=== PATIENT | male | born 1935 | race Caucasian/White ===

== ENCOUNTER 2018-08-14 16:43 | Inpatient (IN) ==
--- NOTE | 2018-08-14 19:47 | Diag Imaging Result Doc PS360 ---
EXAM: CHEST-2 VIEWS 08/14/2018 HISTORY: SOB TECHNIQUE: AP and lateral sitting chest COMMENT: There is cardiomegaly. There is a calcified granuloma in the left lower lobe. Compared to 01/15/2018 there has been no significant change considering differences in technique. IMPRESSION: Stable chest. Electronically signed by Ángel Woods 08/14/2018 7:45 PM
[2018-08-14 20:14] LABS: BASO# 0.07 X1000 (0.0-0.2); EOS# 0.28 X1000 (0.0-0.7); HEMATOCRIT 41.4 % (42.0-52.0); HEMOGLOBIN 14.1 g/dL (14.0-18.0); IMM GRAN# 0.09 X1000 (0.0-0.04); IMM GRAN% 1.3 % (0.0-0.5); LYMPH# 1.77 X1000 (1.2-3.4); LYMPH% 25.4 % (20.5-51.1); MCH 30.8 PG (27-31); MCHC 34.1 g/dL (33-37); MCV 90.4 FL (81-99); MONO# 0.96 X1000 (0.11-0.59); MONO% 13.8 % (1.7-9.3); MPV 10.2 FL (7.4-10.4); NEUT# 3.81 X1000 (1.4-6.5); NEUT% 54.5 % (42.2-75.2); PLT 180 X1000 (130-400); RBC 4.58 XMIL (4.7-6.1); RDW 12.5 % (11.5-14.5); WBC 6.98 X1000 (4.8-10.8)
[2018-08-14 20:21] LABS: INR 2.82; PROTIME 31.7 Seconds (11.0-16.0)
[2018-08-14 20:33] LABS: HEMOGLOBIN A1C 5.3 % (4.8-6.0)
[2018-08-14 20:37] LABS: ALB/GLOB RATIO 1.6; ALBUMIN 4.1 g/dL (3.5-5.0); CALCIUM 8.6 mg/dL (8.8-10.2); CREATININE 1.2 mg/dL (0.7-1.2); POTASSIUM 4.6 mmol/L (3.5-5.1); TOTAL BILIRUBIN 0.66 mg/dL (0.20-1.00); TOTAL PROTEIN 6.7 g/dL (6.3-8.3)
[2018-08-14 21:23] LABS: TSH 2.03 uIUmL (0.27-4.20)
[2018-08-14] MEDS: NS 1,000 ML IV SCH (21:47)
[2018-08-14] MEDS: SODIUM CHLORIDE 0.9% INJ SCH (21:47)
[2018-08-14] MEDS: PEPCID IV SCH (21:47)
[2018-08-15 06:40] LABS: INR 2.63
--- NOTE | 2018-08-15 07:56 | EKG Report ---
Test Performed on : 08/14/2018 6:56:20 PM Test Reason : chest pain Blood Pressure : / mmHG Vent. Rate : 069 BPM Atrial Rate : 069 BPM P-R Int : 000 ms QRS Dur : 192 ms QT Int : 474 ms P-R-T Axes : 000 -70 080 degrees QTc Int : 507 ms Ventricular-paced rhythm with occasional premature ventricular complexes. Abnormal ECG When compared with ECG of 16-JAN-2018 12:31, premature ventricular complexes. are now present Vent. rate has increased BY 8 BPM Confirmed by Pavan Shen MD ([id number]) on 08/18/2018 11:21:07 AM
--- NOTE | 2018-08-15 08:01 | HISTORY AND PHYSICAL ---
CHIEF COMPLAINT: Feeling weak, dizziness, low blood pressure, difficulty in swallowing, choking, worsening of parkinsonism. HISTORY OF PRESENT ILLNESS: He is an 80-year-old white gentleman who came to my office with the above problems. His blood pressure was 90/60. He has been on beta meron. He is progressively declining of activities of daily living, as well as instrumental activities due to underlying parkinsonism. He has trouble swallowing, and prone for falls due to low blood pressure. The patient was admitted to the hospital with IV fluids, evaluation of swallowing, also needs Neurology opinion with Dr. Hector. Apparently, he was seen by Dr. Hector a month ago. He used to see Dr. Holliday. As a result, a hospital admission was warranted. PAST MEDICAL HISTORY: PAF, BPH, gallstones, glaucoma, hyperlipidemia, hypertension, Parkinson's disease. PAST SURGICAL HISTORY: Pacemaker in 2005, bilateral cataract surgery, appendectomy, right and left shoulder replacement, right and left knee replacement. MEDICATIONS: Medications in my office are carbidopa/levodopa 25/100 t.i.d., digoxin 125 daily, Aricept 10 daily, Lasix 20 daily, latanoprost 1 drop once daily, metoprolol 50 one tablet b.i.d., Multaq 400 twice daily, pravastatin 40 mg daily, Aldactone 25 daily, vitamin D3, 1000 units daily, warfarin, and Coumadin. ALLERGIES: Clinoril, penicillin, and sulfa drugs. SOCIAL HISTORY: since 2016. Three children. Retired from [employer]. Lives in [place]. No smoking. No alcohol. FAMILY HISTORY: Father of heart attack at 69. Mom of heart conditions. Brothers had breast cancers and stomach cancers, Parkinson's disease. HEALTH MAINTENANCE: Flu vaccine in 2018, pneumococcal in 2017. Last digital exam in 02/2016. Colonoscopy, Dr. Miller. REVIEW OF SYSTEMS: HEENT: No headache. No vision problem. Dizziness, hearing problems, trouble swallowing, choking. and cough. Cardiopulmonary: No chest pain, shortness of breath, PND, orthopnea. GI: No nausea, vomiting, abdominal pain. : No history of hesitancy, frequency. No swelling of legs, and no joint pain. Neurologic: No focal symptoms or weakness. PHYSICAL EXAMINATION: VITAL SIGNS: Temperature is 98.2 degrees, pulse 76, blood pressure 120/72. Height 6 feet 3 inches, weight 207 pounds. The patient was in my office. His orthostatic blood pressures were dropping, 90/60 upon standing. HEENT: Within normal limits. NECK: Supple. No lymphadenopathy. CHEST: Bilateral air entry. HEART: Heart sounds are regular. ABDOMEN: Belly is soft, nontender. Good bowel sounds. EXTREMITIES: No peripheral edema, cyanosis. NEUROLOGIC: No obvious neurological deficits. INVESTIGATIONS: CBC: White cell count 6.9, hematocrit 41, platelets 180,000. PT 31.7, INR 2.82. Sodium 135, potassium 4.6, BUN 24, creatinine 1.2, calcium 8.6. B12 and TSH are normal. Chest x- ray stable. Pacemaker noted on the left side. Bilateral shoulder replacement. ASSESSMENT AND PLAN: An 83-year-old white gentleman, progressively declining, with underlying Parkinson's disease causing the orthostatic hypotension, dizziness, and weak spells. Plan of care is: 1. Rule out dysautonomia. Adjust the blood pressure medicines. 2. Prerenal azotemia. IV fluids. 3. Reconcile home medicines. 4. Evaluation of speech therapy and barium swallow, and also consult with Dr. Hector, and will follow up. cc: Michael Negron MD MTDD
[2018-08-15] MEDS ORDERED: LOVENOX SUBQ SCH (09:00)
[2018-08-15] MEDS: SODIUM CHLORIDE 0.9% INJ SCH (09:14)
[2018-08-15] MEDS: PEPCID IV SCH ×2 (09:17→21:36)
[2018-08-15] MEDS: MULTAQ PO SCH ×2 (09:57→21:36)
[2018-08-15] MEDS: THERA M PLUS PO SCH ×2 (09:57→18:49)
[2018-08-15] MEDS: ALDACTONE PO SCH (09:57)
[2018-08-15] MEDS: LANOXIN PO SCH ×2 (09:58→18:49)
[2018-08-15] MEDS: LOPRESSOR PO SCH ×2 (09:58→21:35)
[2018-08-15] MEDS: NS 1,000 ML IV SCH (10:54)
--- NOTE | 2018-08-15 12:24 | Diag Imaging Result Doc PS360 ---
EXAM: BA SWALLOW W/VIDEO SPEECH THER 08/15/2018 HISTORY: DEHYDRATION TECHNIQUE: 126 images, 28 seconds fluoroscopy time, 80 mGy. COMMENT: The patient is able to swallow barium without difficulty. There is consistent penetration of barium into the larynx but not below the cords. This does elicit a cough reflex. It is cleared on subsequent swallows. The thoracic esophagus is unremarkable in appearance. IMPRESSION: Laryngeal penetration without true aspiration. Electronically signed by Ángel Woods 08/15/2018 12:22 PM
--- NOTE | 2018-08-15 14:45 | CONSULTATION ---
DATE OF CONSULTATION: 08/15/2018 HISTORY: Mr. Gonsalez is 83 years old, and he has parkinsonism with likely idiopathic Parkinson disease as explanation. History from the patient is that he had some shaking in the left arm intermittently several years ago. This gradually became more prominent, and gait became more stooped. It began to take him a long time to get things done including simple household tasks and routine daily activities. He was seen in our office last year. He had some resting tremor and rigidity. He was started on carbidopa levodopa 25/100, dose was titrated from b.i.d. to t.i.d. and he reported improvement. In the last few months, he and attentive [id number] report medicine seems less effective. He has stumbled but has not fallen. He had some tremor which interfered with eating, and that was temporarily less prominent but seems more prominent in recent months. There is occasional choking and strangling, liquids and solids. There is family history of tremor in his middle son, brother, and father. There has been some forgetfulness over the last few years, gradually becoming more prominent. He was started on donepezil a year or 2 ago, and dose was titrated to 10 mg daily within the last year. He has tolerated donepezil. Workup this admission includes lab showing sodium 135, BUN 24, PBNP 2959, and TSH 2.03. Normal blood sugars. INR is 2.82, consistent with his taking warfarin chronically. We do not have report of prior brain imaging in this computer system. PHYSICAL EXAMINATION: On exam now, approximately 24 hours since last Sinemet dose, he is awake, alert, attentive, oriented, cheerful and appropriate. Speech is not significantly dysarthric. Voice is strong, not Parkinsonian. He has slight paucity of facial expression but good motility bilaterally. Glabellar sign is not present. Gag is intact. Tongue is midline. Hearing is fair. Shoulder shrug is equal. Strength is normal in the arms and legs. Tone is increased in the left arm more than the right. There is cogwheeling in the arms, a little more on the left. There was intermittent fairly minimal resting tremor in the left arm. He has slight tremor with action noted in postural suspension of the arms, equal on the left and right. He did well on [id number] testing bilaterally. I did not test his gait. He has a stocking pattern of sensory loss to pinprick and light touch. Proprioception is good at the great toe MTP joint bilaterally. Reflexes are 1+ at the knees and absent at the ankles bilaterally. Plantar response is silent bilaterally. IMPRESSION: 1. Parkinsonism with some features of idiopathic Parkinson disease. Report that he was initially improved with Sinemet is encouraging. We might resume Sinemet and consider increasing the daily dose of levodopa. I would consider carbidopa/levodopa 25/100 q.i.d. if tolerated. I discussed potential dopaminergic side effects at length with patient and [id number] at the bedside. We will be glad to continue to follow Mr. Gonsalez in the office after discharge. 2. Cognitive impairment. We discussed this as a frequent accompanying problem with Parkinson's disease. 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 Donepezil may be providing some benefit. After Sinemet dose is regulated, we might consider trying higher dose donepezil and/or adding memantine. 3. There is clinical evidence of peripheral neuropathy. He reports no diabetes mellitus, no thyroid disease, no history of chemotherapy, no ethanol use. This may be simply age-related and may be minimal. He has taken B12 chronically, and he may have had B12 deficiency in the past with a static neuropathy now. We might consider nerve conduction study electively as an outpatient. Thanks for asking Neurology to see Mr. Gonsalez. cc: MD Michael Mckinley III, MD MTDD
[2018-08-15] MEDS ORDERED: ARICEPT PO SCH (21:00)
[2018-08-15] MEDS ORDERED: XALATAN 0.005% OPH SOLN BOTH EYES SCH (21:00)
[2018-08-15] MEDS ORDERED: PRAVACHOL PO SCH (21:00)
[2018-08-15] MEDS ORDERED: COUMADIN PO SCH (21:00)
[2018-08-15] MEDS ORDERED: ASPIRIN PO SCH (21:00)
--- NOTE | 2018-08-15 21:24 | PROGRESS NOTE ---
DATE: 08/15/2018 SUBJECTIVE: I appreciated Dr. Hector's consult. The patient had a barium swallows as well as speech therapy evaluation done. He has some laryngeal penetration, but no definite aspiration. He has a progression of Parkinson disease. Dr. Hector increased the Sinemet, and all the workup was essentially unremarkable. OBJECTIVE: Physical exam exhibiting parkinsonism signs. DIAGNOSTIC STUDIES: PT 30, INR 2.6. ProBNP 2900. Vitamin D levels were normal. ASSESSMENT AND PLAN: 1. Declining of activities of daily living and instrumental activities due to progression of Parkinson disease. Plan is increasing Sinemet to 4 a day. 2. Azotemia, improving. IV fluids. 3. Deep vein thrombosis prophylaxis. He is on Coumadin. 4. Gastrointestinal prophylaxis. With IV Pepcid. 5. Restart on warfarin. 6. Hyperlipidemia. On Pravachol. 7. Paroxysmal atrial fibrillation. Currently status post cardioversion. Currently on Multaq, aspirin, Coumadin, and Lanoxin pacemaker was placed. 8. Reconcile home medications and follow the Speech Therapy recommendations. 9. Discussed the plan of care with the family. 10. Discontinue intravenous fluids and check the orthostatic blood pressure tomorrow LEVEL OF DOCUMENTATION: 25 minutes. cc: Michael Negron MD MTDD
[2018-08-15] MEDS: SINEMET 25/100 PO SCH (21:35)
[2018-08-16 08:10] VITALS: BP 103/65
[2018-08-16] MEDS: SINEMET 25/100 PO SCH (08:33)
[2018-08-16] MEDS: LOPRESSOR PO SCH (08:33)
[2018-08-16] MEDS: LANOXIN PO SCH (08:33)
[2018-08-16] MEDS: THERA M PLUS PO SCH (08:33)
[2018-08-16] MEDS: ALDACTONE PO SCH (08:33)
[2018-08-16] MEDS: MULTAQ PO SCH (08:33)
[2018-08-16] MEDS: PEPCID IV SCH (08:34)
[2018-08-16] MEDS: SODIUM CHLORIDE 0.9% INJ SCH (08:34)
[2018-08-16] MEDS ORDERED: COUMADIN PO SCH (21:00)
--- NOTE | 2018-08-18 10:16 | DISCHARGE SUMMARY ---
ADMISSION DATE: 08/14/2018 DISCHARGE DATE: 08/16/2018 DISCHARGING DIAGNOSIS: Deconditioning due to worsening of Parkinson disease. SECONDARY DIAGNOSIS: 1. Orthostatic hypotension due to Flomax. 2. Paroxysmal atrial fibrillation status post cardioversion. 3. Benign prostatic hypertrophy. 4. Gallstones. 5. Glaucoma. 6. Hyperlipidemia. 7. Hypertension. CONSULT: Dr. Hector. PROCEDURES: 1. Speech therapy evaluation. The patient was instructed to use the chin tuck and swallowing the liquids. 2. Barium swallow with video speech therapy, laryngeal penetration without aspiration. BRIEF HISTORY: Please see the H and P that was done on 08/14/2018. In brief, he is an 80-year- old white gentleman with above problems, basically admitted to the hospital with low blood pressure, feeling dizziness, worsening of Parkinson disease with tremor, slight rigidity as well as choking, difficulty in swallowing. He was slightly azotemic. HOSPITAL COURSE: He was given IV fluids. Flomax was stopped. Follow up on blood pressure was stable. The patient was seen by Dr. Hector, increased the Sinemet 4 pills a day. Speech therapy evaluation was done with precautions. Rest of the hospital course was uneventful. Patient and family wants to go home with outpatient home health care. LABORATORY DATA: CBC: White cell count 6.9, hematocrit 41.4, platelet count 180,000. PTT 30, INR 2.63. Sodium 135, potassium 4.6, chloride 98, BUN 24, creatinine 1.2, glucose 91. A1c 5.3. Uric acid 6.7, calcium 8.6. ProBNP 3000. LFTs were normal. B12 is normal. Vitamin D 50.8. TSH is normal. Blood cultures, urine cultures were negative. EKG is in sinus with pacemaker rhythm. Chest x-ray: Cardiomegaly, bilateral shoulder replacement, pacemaker on the left side, anterior fusion of thoracic spine. DISCHARGE INSTRUCTIONS: Patient was discharged home with the following instructions: 1. Flu vaccine, 11/05/2017. 2. Pneumococcal vaccine 23, 11/05/2016. 3. Pravastatin 40 mg daily. 4. Aspirin 81 mg daily. 5. Warfarin 5 and 7.5 as directed. 6. Lanoxin 125 mcg in the morning. 7. Aldactone 25 p.o. b.i.d. 8. Xalatan 1 drop both eyes at bedtime. 9. Multaq 400 p.o. b.i.d. 10. Metoprolol 50 p.o. b.i.d. 11. Sinemet 25/100 one tablet 4 times daily. 12. Aricept 10 mg daily. 13. Mag oxide 400 daily. 14. Hold the Flomax. 15. Follow up on the instructions on speech therapy guidelines. 16. Outpatient home health care. 17. Follow up in my office in 2 weeks. cc: MD Jamila Campo III, MD MTDD
== END 2018-08-16 10:50 | disposition home health service (06) | DRG 57 ==
LOC: DIRADM 16:43 → 4N 16:52
PROVIDERS: ADMIT Internal Medicine; ATTEND Internal Medicine
CPT/HCPCS: 71020; 71046; 74230; 80048; 80053; 82306; 82607; 83036; 83880; 84443; 84550; 85025; 85610; 92611; 93005; 93010; 97110; 97162; 97530; A9270; J7030; S0028